=== PATIENT | female | born 1985 | race Caucasian/White ===

== ENCOUNTER 2019-06-18 08:52 | Emergency (ER) | payer OTHER ==
[~2019-06-18] VITALS: Ht 160 cm; Wt 65.5 kg
[2019-06-18] MEDS ORDERED: ASPI81 PO (09:03)
[2019-06-18] MEDS ORDERED: ATOR40TA28 PO (09:03)
[2019-06-18] MEDS ORDERED: AMLO5TAB9 PO (09:03)
[2019-06-18 11:31] VITALS: BP 136/86
== END 2019-06-18 11:33 | disposition home or self-care (01) ==
LOC: EMS 08:53
DX: S93.401A Sprain of unspecified ligament of right ankle, initial encounter (principal); I10 Essential (primary) hypertension; E78.00 Pure hypercholesterolemia, unspecified; Z88.1 Allergy status to other antibiotic agents; Z79.82 Long term (current) use of aspirin; X50.1XXA Overexertion from prolonged static or awkward postures, initial encounter; Y93.89 Activity, other specified; Y92.89 Other specified places as the place of occurrence of the external cause; Y99.8 Other external cause status